=== PATIENT | female | born 1970 | race Caucasian/White ===

== ENCOUNTER 2022-11-20 16:49 | Emergency (ER) | payer OTHER, MEDICAID ==
[~2022-11-20] VITALS: Ht 170.2 cm; Wt 82.6 kg
[2022-11-20 17:05] VITALS: BP 130/75
[2022-11-20] MEDS ORDERED: KETOROLAC 60 MG/2 ML VIAL IM ONE (17:40)
--- NOTE | 2022-11-20 17:54 | NUR ---
PT IN BED 2, ALREADY SEEN BY , MEDICATED ORDERED, O2 SAT 99% RA, SR UP TIMES2
[2022-11-20] MEDS ORDERED: ACET-8905 PO (19:17)
[2022-11-20] MEDS ORDERED: IBUP-2213 PO (19:17)
--- NOTE | 2022-11-20 19:35 | NUR ---
PT IS AWKE AND ALERT. HAS LEFT BELOW THE KNEE AMPUTATION. HAS FRACTURE IN RIGHT LEG. PT IS CALM AND COOPERATIVE.
[2022-11-20 19:48] VITALS: BP 125/75
--- NOTE | 2022-11-20 19:48 | NUR ---
Patient discharged with v/s stable. Written and verbal after care instructions given and explained. Patient alert, oriented and verbalized understanding of instructions. Wheel Chair Assisted with to car. All questions addressed prior to discharge. ID band removed. Patient advised to follow up with PMD. Rx of Ibuprofen and [place] given. Patient educated on indication of medication including possible reaction and side effects. Opportunity to ask questions provided and answered.
== END 2022-11-20 19:48 | disposition home or self-care (01) ==
LOC: MED 16:49
DX: S82.831A Other fracture of upper and lower end of right fibula, initial encounter for closed fracture (principal); E11.9 Type 2 diabetes mellitus without complications; I10 Essential (primary) hypertension; Z79.4 Long term (current) use of insulin; Z79.899 Other long term (current) drug therapy; W18.30XA Fall on same level, unspecified, initial encounter; Y93.89 Activity, other specified; Y92.89 Other specified places as the place of occurrence of the external cause; Y99.8 Other external cause status
CPT/HCPCS: 29505; 73590; 96372; 99283; J1885